=== PATIENT | male | born 1985 | race Two or more races ===

== ENCOUNTER 2016-11-19 00:09 | Emergency (ER) | payer MEDICAID ==
[~2016-11-19] VITALS: Ht 180.3 cm; Wt 77.1 kg
[2016-11-19] MEDS ORDERED: NKM (00:21)
--- NOTE | 2016-11-19 01:13 | Emergency Room Report ---
History of Present Illness General Chief Complaint: Abdominal Pain Source: Patient Present Illness HPI Is a 31-year-old male who presents with chief complaint of abdominal pain with vomiting. He was at [facility] earlier today for the same. He said that the left a plastic IV and him. He denies any fever chills but he wants the whole body scan. Denies any other complaint. Pain is 10 out of 10. Allergies: Coded Allergies: No Known Allergies (Unverified , 11/19/16) Patient History Past Medical History: see triage record, old chart reviewed Past Surgical History: none Pertinent Family History: none Social History: Denies: smoking Immunizations: other Reviewed Nursing Documentation: PMH: Agreed, PSxH: Agreed Nursing Documentation-PM Past Medical History: No Stated History Review of Systems Eye: Denies: blurred vision, eye pain ENT: Denies: ear pain, nose congestion, throat swelling Respiratory: Denies: cough, shortness of breath Cardiovascular: Denies: chest pain, palpitations Gastrointestinal: Reports: abdominal pain, nausea, vomiting, Denies: diarrhea Musculoskeletal: Denies: back pain, joint pain Skin: Denies: rash Neurological: Denies: headache, numbness Endocrine: Denies: increased thirst, increased urine Hematologic/Lymphatic: Denies: easy bruising All Other Systems: negative except mentioned in HPI Physical Exam Vital Signs Date Time Temp Pulse Resp B/P Pulse Ox O2 Delivery O2 Flow Rate FiO2 11/19/16 00:12 97.9 75 16 131/80 98 Room Air vitals normal Sp02 EP Interpretation: reviewed, normal General Appearance: well appearing, no apparent distress, alert Head: normocephalic, atraumatic Eyes: bilateral eye EOMI, bilateral eye PERRL ENT: hearing grossly normal, normal pharynx Neck: full range of motion, supple, no meningismus Respiratory: chest non-tender, lungs clear, normal breath sounds Cardiovascular #1: regular rate, rhythm, no murmur Gastrointestinal: normal bowel sounds, non tender, no mass, no organomegaly, no bruit, non-distended Musculoskeletal: back normal, gait/station normal, normal range of motion Psychiatric: mood/affect normal Skin: warm/dry Medical Decision Making Diagnostic Impression: Primary Impression: Abdominal pain of unknown etiology ER Course Patient with vague abdominal pain. Abdominal exam benign. He has no pain on my exam. He ate and drank it without a problem. I see no need for further workup. No evidence of acute abdomen. Last Vital Signs Date Time Temp Pulse Resp B/P Pulse Ox O2 Delivery O2 Flow Rate FiO2 11/19/16 00:12 97.9 75 16 131/80 98 Room Air Status: improved Disposition: HOME, SELF-CARE Condition: Stable Referrals: NOT CHOSEN IPA/MD,REFERRING (PCP) Patient Instructions: Abdominal Pain, Adult Additional Instructions: Abstain from drugs and alcohol. Followup with your Dr. in 7 days. Return if worse. SUNNY GUTIERREZ M.D. Nov 19, 2016 01:13
[2016-11-19 01:17] VITALS: BP 128/80
[2016-11-19 01:18] VITALS: BP 128/80
== END 2016-11-19 01:19 | disposition home or self-care (01) ==
LOC: EMR 00:33
DX: R10.9 Unspecified abdominal pain (principal); R11.2 Nausea with vomiting, unspecified
CPT/HCPCS: 99282